=== PATIENT | female | born 1990 | race African-American/Black ===

== ENCOUNTER → 2016-11-29 | Outpatient (CLI) | payer MEDICARE, OTHER ==
[2016-09-10 17:39] VITALS: BP 115/72
[~2016-11-29] MED LIST: PROAIR HFA8.5 GM INH
--- NOTE | 2016-11-30 13:45 | CARD ---
APPROVED REPORT EXAM: Two-dimensional and M-mode echocardiogram with Doppler and color Doppler. Other Information Quality : Average Rhythm : NSR INDICATION Cardiomyopathy Chest Pain 2D DIMENSIONS RVDd2.0 (2.9-3.5cm)Left Atrium(2D)2.3 (1.6-4.0cm) IVSd0.6 (0.7-1.1cm)Aortic Root(2D)2.1 (2.0-3.7cm) LVDd4.1 (3.9-5.9cm)LVOT Diameter1.9 (1.8-2.4cm) PWd0.6 (0.7-1.1cm)LVDs2.8 (2.5-4.0cm) FS (%) 21.7 %SV44.8 ml LVEF(%)40.0 (>50%) Aortic Valve AoV Peak Zev.100.2cm/sAoV VTI19.2cm AO Peak GR.4.0mmHgLVOT Peak Zev.80.9cm/s LVOT VTI 17.76cmAO Mean GR.2mmHg DARREN (VMAX)2.01xp4CFO (VTI)2.50cm2 Mitral Valve MV E Bygiemmm12.5cm/sMV DECEL [id number] MV A Mcbsrzfh03.2cm/sMV FNQ18ae E/A Ratio2.0MV A Lixdskwh72om MVA (PHT)4.36cm2 TDI E/Lateral E'4.5E/Medial E'7.1 Pulmonary Valve PV Peak Fncfsfmk13.8cm/sPV Peak Grad.2mmHg RVOT VTI15.9cm Tricuspid Valve TR P. Mrhtqopt289wm/sRAP YVQNZHSI6wtOy TR Peak Gr.36ydCtFXLG47rhKq Pulmonary Vein S1 Wvouoyyg77.3cm/sD2 Jekusvit58.4cm/s LEFT VENTRICLE The left ventricle is normal size. There is normal left ventricular wall thickness. Left ventricle sy stolic function is low normal. The Ejection Fraction is 40%. Septal motion consistent with post-opera tive state. The left ventricular diastolic function and filling is normal for age. There is no ventri cular septal defect visualized. RIGHT VENTRICLE The right ventricle is normal size. The right ventricular systolic function is normal. ATRIA The left atrium size is normal. The right atrium size is normal. The interatrial septum is intact wit h no evidence for an atrial septal defect or patent foramen ovale as noted on 2-D or Doppler imaging. AORTIC VALVE The aortic valve is normal in structure and function. The aortic valve is trileaflet. Doppler and Col or Flow revealed no significant aortic regurgitation. There is no significant aortic valvular stenosi s. MITRAL VALVE The mitral valve is normal in structure There is no mitral valve stenosis. Doppler and Color Flow rev ealed mild mitral regurgitation. TRICUSPID VALVE The tricuspid valve is normal in structure and function. Doppler and Color Flow revealed mild tricusp id regurgitation. The PA pressure was estimated at 26 mmHg. There is no tricuspid valve stenosis. PULMONIC VALVE The pulmonary valve is normal in structure. Doppler and Color Flow revealed mild to moderate pulmonic valvular regurgitation. There is no pulmonic valvular stenosis. GREAT VESSELS The aortic root is normal in size. The IVC is normal in size and collapses >50% with inspiration. PERICARDIAL EFFUSION There is no evidence of significant pericardial effusion. Critical Notification Critical Value: No <Conclusion> Left ventricle systolic function is low normal. The Ejection Fraction is 40%. The left atrium size is normal. The right atrium size is normal. The aortic valve is normal in structure and function. The aortic valve is trileaflet. Doppler and Color Flow revealed mild mitral regurgitation. Doppler and Color Flow revealed mild tricuspid regurgitation. The PA pressure was estimated at 26 mmHg. Doppler and Color Flow revealed mild to moderate pulmonic valvular regurgitation. There is no evidence of significant pericardial effusion.
== END | disposition home or self-care (01) ==
LOC: ECHO 07:28
PROVIDERS: ATTEND Internal Medicine Cardiovascular Disease
DX: I08.1 Rheumatic disorders of both mitral and tricuspid valves (principal); I42.8 Other cardiomyopathies; R07.89 Other chest pain; Z98.890 Other specified postprocedural states
CPT/HCPCS: 93306

== ENCOUNTER 2017-03-23 17:18 | Emergency (ER) | payer MEDICARE, OTHER ==
[2017-03-23 17:27] VITALS: BP 132/68
--- NOTE | 2017-03-23 18:18 | PHYS DOC ---
Past Medical History Past Medical History: No Pertinent History, Depression Past Surgical History: Tubal ligation, Other Additional Past Surgical Histo: cardiac surgery to repair biopsy complication Alcohol Use: None Drug Use: Marijuana Adult General Chief Complaint Chief Complaint: FOOT INJURY PAIN [facility] HPI Patient is a 27 year old female presents to the emergency department stating that she was working on a step when she twisted her right foot and ankle. She states that she has having tenderness just below the ankle area in the foot portion. She states she is able to ambulate however has increased pain and discomfort. She states that she is taken Tylenol for the pain and discomfort with minimal relief. There does not appear to be any bruising discoloration or any swelling noted. Peripheral pulses 2+ cap refill brisk less than 2 seconds. Review of Systems Review of Systems Constitutional: Denies fever or chills [] Eyes: Denies change in visual acuity, redness, or eye pain [] HENT: Denies nasal congestion or sore throat [] Respiratory: Denies cough or shortness of breath [] Cardiovascular: No additional information not addressed in HPI [] GI: Denies abdominal pain, nausea, vomiting, bloody stools or diarrhea [] : Denies dysuria or hematuria [] Musculoskeletal: Denies back pain. Right foot and ankle pain Integument: Denies rash or skin lesions [] Neurologic: Denies headache, focal weakness or sensory changes [] Endocrine: Denies polyuria or polydipsia [] Allergies Allergies Allergies Coded Allergies Type Severity Reaction Last Updated Verified No Known Drug Allergies 05/14/16 No Physical Exam Physical Exam Constitutional: Well developed, well nourished, no acute distress, non-toxic appearance. [] HENT: Normocephalic, atraumatic, bilateral external ears normal, oropharynx moist, no oral exudates, nose normal. [] Eyes: PERRLA, EOMI, conjunctiva normal, no discharge. [] Neck: Normal range of motion, no tenderness, supple, no stridor. [] Cardiovascular:Heart rate regular rhythm Lungs & Thorax: No respiratory distress noted Skin: Warm, dry, no erythema, no rash. [] Back: No tenderness Extremities: Right foot/ankle tenderness, no cyanosis, no clubbing, ROM intact, no edema. No bruising no discoloration no redness noted peripheral pulses 2+ cap refill brisk less than 2 seconds. Neurologic: Alert and oriented X 3, normal motor function, normal sensory function, no focal deficits noted. [] Psychologic: Affect normal, judgement normal, mood normal. [] Current Patient Data Vital Signs Vital Signs Date Time Temp Pulse Resp B/P (MAP) Pulse Ox O2 Delivery O2 Flow Rate FiO2 03/23/17 17:27 98.3 82 18 98 Room Air 98.3 EKG EKG [] Radiology/Procedures Radiology/Procedures [] Course & Med Decision Making Course & Med Decision Making Pertinent Labs and Imaging studies reviewed. (See chart for details) X-rays were negative per Dr. Quinn. Hung wrap will be placed over the area with recommendations for ice packs on 20 minutes off 20 minutes several times a day. Elevation as much as possible. Recommended ibuprofen 800 mg every 8 hours with food stop taking few develop an upset stomach. Patient agrees with discharge instructions, treatment regimens and follow-up recommendations. She'll be provided with orthopedic name and number to follow up with as needed. Signs and symptoms to return back to emergency department been provided. All questions and concerns been answered at the patient's bedside. Dragon Disclaimer Dragon Disclaimer This electronic medical record was generated, in whole or in part, using a voice recognition dictation system. Departure Departure Impression: Primary Impression: Right foot sprain Disposition: 01 HOME, SELF-CARE Condition: STABLE Referrals: UNKNOWN PCP NAME (PCP) YUNIOR LOPEZ MD Patient Instructions: Foot Sprain-Brief Additional Instructions: Your x-rays were negative for any bony abnormalities. Hung wrap for the next 5-7 days. Ice packs on 20 minutes off 20 minutes several times a day. Elevation as much as possible. Ibuprofen 800 mg every 8 hours with food stop taking few develop an upset stomach. Follow-up with orthopedic as needed. Return back to emergency prior signs symptoms become worse. Problem Qualifiers Primary Impression: Right foot sprain Encounter type: initial encounter Qualified Codes: S93.601A - Unspecified sprain of right foot, initial encounter JEAN-CLAUDE EVANS HEARING THERAPY DIRECTOR Mar 23, 2017 18:18
--- NOTE | 2017-03-24 08:00 | RAD ---
Exam performed :Right ankle 3 views Clinical indication: Twisted ankle today Date of service: 03/23/17 .Comparison:None available Finding: AP, oblique and lateral radiographs of the ankle reveal the osseous structures to be intact and well aligned. The joint spaces are well-preserved. The articular margins are smooth. Evidence of fracture or dislocation is not identified. Mild soft tissue swelling is seen on the right ankle. Impression: Radiographically normal right ankle.
== END 2017-03-23 18:26 | disposition home or self-care (01) ==
LOC: ER 17:18
DX: S93.601A Unspecified sprain of right foot, initial encounter (principal); X50.9XXA Other and unspecified overexertion or strenuous movements or postures, initial encounter; Y93.89 Activity, other specified; Y99.8 Other external cause status; Y92.89 Other specified places as the place of occurrence of the external cause
CPT/HCPCS: 73610; 99284

== ENCOUNTER 2018-04-09 17:47 | Emergency (ER) | payer MEDICARE, OTHER ==
[~2018-04-09] VITALS: Ht 144.8 cm; Wt 54.9 kg
[2018-04-09 18:03] VITALS: BP 146/96
[2018-04-09] MEDS ORDERED: AMOX500C PO (18:34)
--- NOTE | 2018-04-09 18:53 | PHYS DOC ---
Past Medical History Past Medical History: Depression Past Surgical History: Tubal ligation, Other Additional Past Surgical Histo: cardiac surgery to repair biopsy complication Alcohol Use: None Drug Use: Marijuana Adult General Chief Complaint Chief Complaint: SORE THROAT HPI HPI Patient is a 28 year old female who presents with sore throat 2 days she has a sick contact with a sore throat who actually ended up having strep throat. Really no cough subjective fever pain worse on the right she chews nicotine gum yesterday but she doesn't think that is causing Review of Systems Review of Systems Constitutional: : Denies dysuria or hematuria [] Musculoskeletal: Denies back pain or joint pain [] Integument: Denies rash or skin lesions [] Neurologic: Denies headache, focal weakness or sensory changes [] All other systems were reviewed and found to be within normal limits, except as documented in this note. Allergies Allergies Allergies Coded Allergies Type Severity Reaction Last Updated Verified No Known Drug Allergies 05/14/16 No Physical Exam Physical Exam Constitutional: Well developed, well nourished, no acute distress, non-toxic appearance. [] HENT: Normocephalic, atraumatic, bilateral external ears normal, oropharynx moist, scattered exudates shoddy anterior lymphadenopathy Eyes: PERRLA, EOMI, conjunctiva normal, no discharge. [] Neck: Normal range of motion, no tenderness, supple, no stridor. [] Cardiovascular:Heart rate regular rhythm, no murmur [] Lungs & Thorax: Bilateral breath sounds clear to auscultation [] Abdomen: Bowel sounds normal, soft, no tenderness, no masses, no pulsatile masses. [] Skin: Warm, dry, no erythema, no rash. [] Back: No tenderness, no CVA tenderness. [] Extremities: No tenderness, no cyanosis, no clubbing, ROM intact, no edema. [] Neurologic: Alert and oriented X 3, normal motor function, normal sensory function, no focal deficits noted. [] Psychologic: Affect normal, judgement normal, mood normal. [] Current Patient Data Vital Signs Vital Signs Date Time Temp Pulse Resp B/P (MAP) Pulse Ox O2 Delivery O2 Flow Rate FiO2 04/09/18 18:03 98.3 79 18 146/96 (113) 98 Room Air 98.3 EKG EKG [] Radiology/Procedures Radiology/Procedures [] Course & Med Decision Making Course & Med Decision Making Pertinent Labs and Imaging studies reviewed. (See chart for details) []Probable strep throat because of cardiac history of treatment with antibiotics well-appearing no evidence of peritonsillar abscess Shad Disclaimer Dragon Disclaimer This electronic medical record was generated, in whole or in part, using a voice recognition dictation system. Departure Departure Impression: Primary Impression: Pharyngitis Disposition: HOME, SELF-CARE Condition: STABLE Patient Instructions: Sore Throat, Qsqd-lk-Optk Scripts Amoxicillin (AMOXICILLIN) 500 Mg Capsule 1 CAP PO BID, #20 CAP Prov: ALISSON PERES MD 04/09/18 ALISSON PERES MD Apr 09, 2018 18:53
== END 2018-04-09 19:07 | disposition home or self-care (01) ==
LOC: ER 17:47
DX: J02.9 Acute pharyngitis, unspecified (principal)
CPT/HCPCS: 99283

== ENCOUNTER 2018-08-28 11:50 | Emergency (ER) | payer MEDICARE, OTHER ==
[~2018-08-28] VITALS: Ht 144.8 cm; Wt 49.0 kg
[~2018-08-28 11:50] MED LIST changes: +ALBU2.5V8 INH; +AMOX500C PO; -PROAIR HFA8.5 GM INH
[2018-08-28 12:11] VITALS: BP 125/78
[2018-08-28] MEDS ORDERED: KETOROLAC 30 MG/ML VIAL. IM ONE (12:30)
[2018-08-28] MEDS ORDERED: NAPR-695 PO (12:50)
--- NOTE | 2018-08-28 12:50 | PHYS DOC ---
Past Medical History Past Medical History: Depression Past Surgical History: Tubal ligation, Other Additional Past Surgical Histo: cardiac surgery to repair biopsy complication Smoking: Cigarettes Alcohol Use: None Drug Use: Marijuana Adult General Chief Complaint Chief Complaint: KNEE INJURY HPI HPI 28 y/o female presents with report of right knee pain which occurred upon mechanical fall this AM at approximately 0400. Denies head trauma or neck pain. Denies laceration or bruising. Reports she feels that the knee cannot support her. Denies . Reports last menstrual period was 2 weeks ago. Also reports history of tubal ligation. Review of Systems Review of Systems Musculoskeletal: Denies back pain or joint pain [] Integument: Denies rash or skin lesions [] Neurologic: Denies headache, focal weakness or sensory changes [] Complete systems were reviewed and found to be within normal limits, except as documented in this note. Current Medications Current Medications Current Medications Medications (Trade) Dose Ordered Sig/Carroll Start Time Stop Time Status Last Admin Dose Admin Ketorolac Tromethamine (Toradol 30mg Vial) 30 mg 1X ONCE 08/28/18 12:30 08/28/18 12:31 DC 08/28/18 12:30 30 MG Allergies Allergies Allergies Coded Allergies Type Severity Reaction Last Updated Verified No Known Drug Allergies 05/14/16 No Physical Exam Physical Exam Constitutional: Well developed, well nourished, no acute distress, non-toxic appearance. [] HENT: Normocephalic, atraumatic, oropharynx moist Eyes: Conjunctiva normal, no discharge. [] Neck: Normal range of motion, no midline tenderness, supple Cardiovascular: Heart rate regular rhythm, CR < 2 sec Lungs & Thorax: Bilateral breath sounds clear to auscultation [] Abdomen: Soft, no tenderness; pelvis stable and nontender Skin: Warm, dry, no erythema, no abrasion or laceration noted Extremities: Right knee tenderness on palpation of tibial plateau, joint appears stable, distal pulses intact, CR < 2 sec, sensation/motor intact, Neurological: Alert and oriented, no focal deficit Psychologic: Affect normal, judgement normal, mood normal. [] Current Patient Data Vital Signs Vital Signs Date Time Temp Pulse Resp B/P (MAP) Pulse Ox O2 Delivery O2 Flow Rate FiO2 08/28/18 12:11 98.3 109 16 125/78 (94) 98 Room Air 98.3 EKG EKG [] Radiology/Procedures Radiology/Procedures PROCEDURE: KNEE RIGHT 3V EXAM: Right knee, 3 views. HISTORY: Pain. COMPARISON: None. FINDINGS: 3 views of the right knee are obtained. There is no fracture, dislocation or subluxation. No joint effusion is seen. IMPRESSION: No acute osseous finding. Electronically signed by: Lisa Sargent MD (08/28/2018 12:43 PM) [facility] Course & Med Decision Making Course & Med Decision Making Pertinent Imaging studies reviewed. (See chart for details) Patients presents with right knee pain s/p fall this AM. Joint appears stable. XR without acute process. Pain addressed. Patient reports unable to move or bear weight. Cannot exclude meniscus injury. Knee immobilizer placed. Crutches with education/training provided. Patient stable for discharge home with outpatient follow-up with PCP/ Orthopedics. Orthopedic referral provided. Discussed findings and plan with patient, who acknowledges understanding and agreement. Dragon Disclaimer Dragon Disclaimer This electronic medical record was generated, in whole or in part, using a voice recognition dictation system. Splinting Splinting : Location: R knee Pre-Made Type: knee immobilizer Pre-Proc Neuro Vasc Exam: normal Post-Proc Neuro Vasc Exam: normal, unchanged from pre-exam Departure Departure Impression: Primary Impression: Knee pain, right Disposition: 01 HOME, SELF-CARE Condition: STABLE Referrals: UNKNOWN PCP NAME (PCP) YUNIRO LOPEZ MD Patient Instructions: Crutch Use, Hwst-hu-Rubi, Knee Immobilizer, [id number]-bf-Lwvw , Knee Pain, Mnlb-mz-Azmk Scripts Ibuprofen (MOTRIN IB) 200 Mg Tablet 400 MG PO TID PRN PRN for PAIN, #30 TAB Prov: YOANDY SHETH DO 08/28/18 Problem Qualifiers Primary Impression: Knee pain, right Chronicity: acute Qualified Codes: M25.561 - Pain in right knee YOANDY SHETH DO Aug 28, 2018 12:50
[2018-08-28] MEDS ORDERED: IBUP200T44 PO (13:02)
== END 2018-08-28 13:20 | disposition home or self-care (01) ==
LOC: ER 11:50
DX: M25.561 Pain in right knee (principal); F32.9 Major depressive disorder, single episode, unspecified; Z98.51 Tubal ligation status
CPT/HCPCS: 29505; 73562; 96372; 99283; J1885

== ENCOUNTER 2021-08-24 09:42 | Emergency (ER) | payer OTHER ==
[~2021-08-24] VITALS: Ht 144.8 cm; Wt 45.5 kg
[~2021-08-24 09:42] MED LIST changes: +IBUP200T44 PO; +NAPR-695 PO
[2021-08-24 10:01] VITALS: BP 139/89
[2021-08-24] MEDS ORDERED: IV RINGERS,LACTATED 1000ML 1,000 ML IV ONE (10:45)
[2021-08-24] MEDS ORDERED: ONDANSETRON PF 4 MG/2 ML VIAL. IVP ONE (10:45)
[2021-08-24 10:57] LABS: BILIRUBIN,URINE NEGATIVE (NEG); CLARITY,URINE CLOUDY; COLOR,URINE YELLOW; NITRITE,URINE NEGATIVE (NEG); PH,URINE 6.5 (<5.0-8.0); PROTEIN,URINE 100 mg/dL (NEG-TRACE)
[2021-08-24 11:00] LABS: BASO % 1 % (0-3); EOS % 0 % (0-3); HEMATOCRIT 42.2 % (36.0-47.0); HEMOGLOBIN 14.3 g/dL (12.0-15.5); LYMPH # 1.4 x10^3/uL (1.0-4.8); LYMPH % 18 % (24-48); MEAN CORPUSCULAR HEMOGLOBIN 33 pg (25-35); MEAN CORPUSCULAR HGB CONC 34 g/dL (31-37); MEAN CORPUSCULAR VOLUME 97 fL (79-100); MONO # 0.5 x10^3/uL (0.0-1.1); MONO % 7 % (0-9); NEUT # 5.6 x10^3/uL (1.8-7.7); NEUT % 74 % (31-73); PLATELET COUNT 361 x10^3/uL (140-400); RED BLOOD COUNT 4.35 x10^6/uL (3.50-5.40); RED CELL DISTRIBUTION WIDTH 13.1 % (11.5-14.5); WHITE BLOOD COUNT 7.5 x10^3/uL (4.0-11.0)
[2021-08-24] MEDS ORDERED: KETOROLAC 30 MG/ML VIAL. IVP ONE (11:00)
[2021-08-24 11:05] LABS: CALCIUM 8.9 mg/dL (8.5-10.1); CREATININE 0.8 mg/dL (0.6-1.0); GFR 101.9; POTASSIUM 3.5 mmol/L (3.5-5.1)
[2021-08-24 11:06] LABS: BACTERIA,URINE MANY /HPF (0-FEW); WBC,URINE TNTC /HPF (0-4)
[2021-08-24 11:07] LABS: RBC,URINE FIELD OBSCURED /HPF (0-2)
--- NOTE | 2021-08-24 11:08 | PHYS DOC ---
Past Medical History Past Medical History: Depression Additional Past Medical Histor: HEART PROBLEMS (BG WEI) Past Surgical History: Tubal ligation, Other Additional Past Surgical Histo: cardiac surgery to repair biopsy complication (BG WEI) Smoking Status: Current Every Day Smoker Alcohol Use: None Drug Use: Marijuana (BG WEI) General Adult EDM: Chief Complaint: ABDOMINAL PAIN HPI: HPI: Patient is a 31 year old female who presents with 4 days of upper abdominal/back pain and 2 days of emesis. Patient states her pain started in her back on the left side more than the right and now extends to her upper abdomen as well. Her pain is worse when she lays in certain positions and tends to worsen at night. Patient denies any remitting factors. She reports she began vomiting yesterday, and was unable to keep fluids down. Today, she states she has had some soda that she did not vomit back up. She reports associated chills, but denies objective fever. Patient states she has "heart problems" and that she often feels a "flutter in her chest." She denies that this is bothering her today. Patient denies hematuria, dysuria and any other complaints at this time. (BG WEI) Review of Systems: Review of Systems: Constitutional: See HPI Eyes: Denies change in visual acuity, visual field deficits or discharge HENT: Denies ear pain, nasal congestion or sore throat Respiratory: Denies cough or shortness of breath Cardiovascular: See HPI GI: See HPI : See HPI Musculoskeletal: Denies back pain or joint pain Integument: Denies rash or other skin lesion Neurologic: Denies headache, focal weakness or sensory changes (BG WEI) Heart Score: C/O Chest Pain: No (BG WEI) Current Medications: Current Medications Medications (Trade) Dose Ordered Sig/Carroll Start Time Stop Time Status Last Admin Dose Admin Ketorolac Tromethamine (Toradol 30mg Vial) 15 mg 1X ONCE 08/24/21 11:00 08/24/21 11:01 Ondansetron HCl (Zofran) 4 mg 1X ONCE 08/24/21 10:45 08/24/21 10:49 DC Ringer's Solution 1,000 ml @ 1,000 mls/hr 1X ONCE 08/24/21 10:45 08/24/21 11:44 (BG WEI) Allergies: Allergies: Allergies Coded Allergies Type Severity Reaction Last Updated Verified No Known Drug Allergies 05/14/16 No (BG WEI) Physical Exam: PE: Constitutional: Well developed, well nourished, no acute distress, non-toxic appearance. HENT: Normocephalic, atraumatic, bilateral external ears normal, nose normal. Eyes: EOMI, conjunctiva normal, no discharge. Neck: Normal range of motion, no stridor. Abdomen: Bowel sounds normal, soft, no tenderness, no masses, no pulsatile masses, negative McBurney's point tenderness, negative Rovsing sign, negative Jones's sign. Skin: Warm, dry, no erythema, no rash. Back: No step-off, no tenderness, bilateral CVA tenderness. Extremities: No tenderness, no cyanosis, no clubbing, ROM intact, no edema. Neurologic: Alert and oriented x4, steady and symmetrical upright gait, no focal deficits noted. (BG WEI) Current Patient Data: Labs: Laboratory Tests Test 08/24/21 09:55 08/24/21 09:59 08/24/21 10:10 Urine Collection Type Void Urine Color Yellow Urine Clarity Cloudy Urine pH 6.5 (<5.0-8.0) Urine Specific [place] 1.010 (1.000-1.030) Urine Protein 100 mg/dL (NEG-TRACE) Urine Glucose (UA) Negative mg/dL (NEG) Urine Ketones (Stick) Negative mg/dL (NEG) Urine Blood Moderate (NEG) Urine Nitrite Negative (NEG) Urine Bilirubin Negative (NEG) Urine Urobilinogen Dipstick 1.0 mg/dL (0.2 mg/dL) Urine Leukocyte Esterase Large (NEG) Urine RBC Field obscured /HPF (0-2) Urine WBC Tntc /HPF (0-4) Urine Squamous Epithelial Cells Mod /LPF Urine Bacteria Many /HPF (0-FEW) Urine Mucus Slight /LPF Bedside Urine HCG, Qualitative Hcg negative (Negative) White Blood Count 7.5 x10^3/uL (4.0-11.0) Red Blood Count 4.35 x10^6/uL (3.50-5.40) Hemoglobin 14.3 g/dL (12.0-15.5) Hematocrit 42.2 % (36.0-47.0) Mean Corpuscular Volume 97 fL (79-100) Mean Corpuscular Hemoglobin 33 pg (25-35) Mean Corpuscular Hemoglobin Concent 34 g/dL (31-37) Red Cell Distribution Width 13.1 % (11.5-14.5) Platelet Count 361 x10^3/uL (140-400) Neutrophils (%) (Auto) 74 % (31-73) Lymphocytes (%) (Auto) 18 % (24-48) Monocytes (%) (Auto) 7 % (0-9) Eosinophils (%) (Auto) 0 % (0-3) Basophils (%) (Auto) 1 % (0-3) Neutrophils # (Auto) 5.6 x10^3/uL (1.8-7.7) Lymphocytes # (Auto) 1.4 x10^3/uL (1.0-4.8) Monocytes # (Auto) 0.5 x10^3/uL (0.0-1.1) Eosinophils # (Auto) 0.0 x10^3/uL (0.0-0.7) Basophils # (Auto) 0.0 x10^3/uL (0.0-0.2) Sodium Level 138 mmol/L (136-145) Potassium Level 3.5 mmol/L (3.5-5.1) Chloride Level 100 mmol/L (98-107) Carbon Dioxide Level 25 mmol/L (21-32) Anion Gap 13 (6-14) Blood Urea Nitrogen 5 mg/dL (7-20) Creatinine 0.8 mg/dL (0.6-1.0) Estimated GFR (Cockcroft-Gault) 101.9 BUN/Creatinine Ratio 6 (6-20) Glucose Level 119 mg/dL (70-99) Calcium Level 8.9 mg/dL (8.5-10.1) Magnesium Level 2.3 mg/dL (1.8-2.4) Total Bilirubin 0.6 mg/dL (0.2-1.0) Aspartate Amino Transf (AST/SGOT) 18 U/L (15-37) Alanine Aminotransferase (ALT/SGPT) 22 U/L (14-59) Alkaline Phosphatase 99 U/L (46-116) Total Protein 8.9 g/dL (6.4-8.2) Albumin 3.9 g/dL (3.4-5.0) Albumin/Globulin Ratio 0.8 (1.0-1.7) Lipase 35 U/L (73-393) Vital Signs: Vital Signs Date Time Temp Pulse Resp B/P (MAP) Pulse Ox O2 Delivery O2 Flow Rate FiO2 08/24/21 10:01 97.7 89 18 139/89 (106) 100 Room Air 97.7 (BG WEI) Radiology/Procedures: Radiology/Procedures: PROCEDURE: CT ABD PELV W/ IV CONTRST ONLY EXAM: Abdomen and pelvis CT with intravenous contrast. HISTORY: Pain. TECHNIQUE: Computed tomographic images of the abdomen and pelvis were obtained following the administration of intravenous contrast. Multiplanar reformatting was performed. *One or more of the following individualized dose reduction techniques were utilized for this examination: 1. Automated exposure control. 2. Adjustment of the mA and/or kV according to patient size. 3. Use of iterative reconstruction technique. COMPARISON: None. FINDINGS: Evaluation of the upper thorax demonstrates no infiltrate or pleural effusion. There is callus formation surrounding a healing posterior lateral left seventh and eighth rib fractures. The heart is normal in size. There is minimal fatty infiltration of the liver along the falciform ligament. No suspicious hepatic lesion is seen. The gallbladder, pancreas, spleen and adrenal glands are unremarkable. There is left greater than right renal pelviectasis and urothelial thickening. There is mild bladder wall thickening and surrounding fatty stranding. There is no appendicitis. There is no bowel obstruction. The uterus is unremarkable. There is a small amount of pelvic free fluid, within this nodule limits for a premenopausal female. There is a 1.4 cm peripherally enhancing right ovarian cyst, likely an involuting cyst. The aorta is normal in caliber. There are prominent retroperitoneal lymph nodes, likely reactive in etiology. There is no acute or suspicious osseous finding. IMPRESSION: 1. Bilateral urothelial thickening and slight bladder wall thickening with surrounding stranding likely due to cystitis and ascending urinary tract infection. There is superimposed left greater than right pelviectasis. Correlate with urinalysis. 2. 1.4 cm suspected involuting right ovarian cyst and small amount of pelvic fr ee fluid. 3. Healing left seventh and eighth rib fractures. Electronically signed by: Lisa Sargent MD (08/24/2021 11:42 AM) [id number] (BG WEI) Course & Med Decision Making: Course & Med Decision Making Pertinent Labs and Imaging studies reviewed. (See chart for details) Patient is a 31-year-old female who presents with 4-day history of bilateral upper back and upper abdominal pain with 2-day history of vomiting. Work-up today will include labs, urinalysis, CT abdomen pelvis. Patient provided with IV fluids and pain medication. Work-up today reveals ascending urinary tract infection. Patient will receive p.o. antibiotic therapy. Patient provided with return precautions. She understands and is agreeable to discharge plan. (BG WEI) Dragon Disclaimer: Dragon Disclaimer: This electronic medical record was generated, in whole or in part, using a voice recognition dictation system. (GB WEI) Departure Departure Impression: Primary Impression: Urinary tract infection Qualified Codes: N39.0 - Urinary tract infection, site not specified; R31.9 - Hematuria, unspecified Disposition: 01 HOME / SELF CARE / HOMELESS Condition: STABLE Referrals: NO PCP (PCP) KHRIS AMBRIZ MD Patient Instructions: Urinary Tract Infection, [id number] Additional Instructions: EMERGENCY DEPARTMENT GENERAL DISCHARGE INSTRUCTIONS Thank you for coming to [facility] Emergency Department (ED) today and trusting us with you care. We trust that you had a positive experience in our Emergency Department. If you wish to speak to the department management, you may call the director at . YOUR FOLLOW UP INSTRUCTIONS ARE FOLLOWS: 1. Follow up with your primary care doctor. If you do not have a primary doctor, please ask for a resource list of physicians or clinics that may be able to assist you with follow up care. 2. The emergency provider has interpreted your imaging studies, if any were ordered. The radiology alternative financing specialist also reviewed them. If there is a change in the findings, you will be notified in 48 hours when at all possible. 3. If a lab test or culture has been done, your results will be reviewed and you will be notified if you need a change in treatment. 4. Follow instructions verbalized to you and refer to the printouts if needed. ADDITIONAL INSTRUCTIONS AND INFORMATION: 1. Your care today has been supervised by a physician who is specially trained in emergency care. Many problems require more than one evaluation for a complete diagnosis and treatment. We recommend that you schedule your follow up appointment as recommended to ensure complete treatment of you illness or injury. If you are unable to obtain follow up care and continue to have a problem, or if your condition worsens, we recommend that you return to the ED. 2. We are not able to safely determine your condition over the phone nor are we able to give sound medical advice over the phone. For these safety reasons, if you call for medical advice we will ask you to come to the ED for further evaluation. 3. If you have any questions regarding these discharge instructions please call the ED at . SAFETY INFORMATION: In the interest of safety, wellness, and injury prevention; we encourage you to wear your seat belt, if you smoke; quite smoking, and we encourage family to use a protective helmet for bicycling and other sporting events that present an increased risk for head injury. IF YOUR SYMPTOMS WORSEN OR NEW SYMPTOMS DEVELOP, OR YOU HAVE CONCERNS ABOUT YOUR CONDITION; OR IF YOUR CONDITION WORSENS WHILE YOU ARE WAITING FOR YOUR FOLLOW UP APPOINTMENT; EITHER CONTACT YOUR PRIMARY CARE DOCTOR, THE PHYSICIAN WHOSE NAME AND NUMBER YOU WERE GIVEN, OR RETURN TO THE ED IMMEDIATELY. Scripts Cefuroxime Axetil (CEFUROXIME) 500 Mg Tablet 1 TAB PO BID for 7 Days, #14 TAB 0 Refills Prov: BG WEI 08/24/21 Attending Signature Attending Signature I have reviewed the PA/CADMIUM BURNER's note and plan of care. I was available for consultation as needed during the patient's visit in the emergency department. I agree with the clinical impression, plan, and disposition. (YOANDY SHETH DO) BG WEI Aug 24, 2021 11:08 YOANDY SHETH DO Aug 25, 2021 11:07
[2021-08-24 11:11] LABS: ALBUMIN 3.9 g/dL (3.4-5.0); ALBUMIN/GLOBULIN RATIO 0.8 (1.0-1.7); MAGNESIUM 2.3 mg/dL (1.8-2.4); TOTAL BILIRUBIN 0.6 mg/dL (0.2-1.0); TOTAL PROTEIN 8.9 g/dL (6.4-8.2)
[2021-08-24] MEDS ORDERED: CONTRAST GIVEN. MC PRN (11:15)
[2021-08-24] MEDS ORDERED: IOHEXOL 300 MG/ML 100ML VIAL. IV ONE (11:15)
--- NOTE | 2021-08-24 11:45 | RAD ---
EXAM: Abdomen and pelvis CT with intravenous contrast. HISTORY: Pain. TECHNIQUE: Computed tomographic images of the abdomen and pelvis were obtained following the administ ration of intravenous contrast. Multiplanar reformatting was performed. *One or more of the following individualized dose reduction techniques were utilized for this examina tion: 1. Automated exposure control. 2. Adjustment of the mA and/or kV according to patient size. 3. Use of iterative reconstruction technique. COMPARISON: None. FINDINGS: Evaluation of the upper thorax demonstrates no infiltrate or pleural effusion. There is katrina bertin formation surrounding a healing posterior lateral left seventh and eighth rib fractures. The hear t is normal in size. There is minimal fatty infiltration of the liver along the falciform ligament. No suspicious hepatic lesion is seen. The gallbladder, pancreas, spleen and adrenal glands are unremarkable. There is left greater than right renal pelviectasis and urothelial thickening. There is mild bladder wall thickening and surrounding fatty stranding. There is no appendicitis. There is no bowel obstruction. The uterus is unremarkable. There is a small amount of pelvic free fluid, within this nodule limits for a premenopausal female. There is a 1.4 cm peripherally enhancing right ovarian cyst, likely an involuting cyst. The aorta is normal in caliber. There are prominent retroperitoneal lymph nodes, likely reactive in e tiology. There is no acute or suspicious osseous finding. IMPRESSION: 1. Bilateral urothelial thickening and slight bladder wall thickening with surrounding stranding like ly due to cystitis and ascending urinary tract infection. There is superimposed left greater than rig ht pelviectasis. Correlate with urinalysis. 2. 1.4 cm suspected involuting right ovarian cyst and small amount of pelvic free fluid. 3. Healing left seventh and eighth rib fractures. Electronically signed by: Lisa Sargent MD (08/24/2021 11:42 AM) [id number]
[2021-08-24] MEDS ORDERED: CEFU500T46 PO (12:06)
== END 2021-08-24 12:16 | disposition home or self-care (01) ==
LOC: ER 09:42
DX: N39.0 Urinary tract infection, site not specified (principal); R31.9 Hematuria, unspecified; R11.2 Nausea with vomiting, unspecified
CPT/HCPCS: 36415; 74177; 80053; 81001; 81025; 83690; 83735; 85025; 87077; 87086; 87186; 96361; 96374; 96375; 99285; J1885; J2405; J7120; Q9967

== ENCOUNTER 2021-12-03 15:20 | Emergency (ER) | payer MEDICARE, OTHER ==
[~2021-12-03] VITALS: Ht 157.5 cm; Wt 48.5 kg
[~2021-12-03 15:20] MED LIST changes: +CEFU500T46 PO; +CLON-77 PO; +FLUO10CA17 PO; +OXYC1TAB15 PO
[2021-12-03] MEDS ORDERED: HYDROcodone/APAP 5/325MG 1 TAB TABLET PO ONE (18:30)
[2021-12-03 19:24] LABS: BASO # 0.1 x10^3/uL (0.0-0.2); BASO % 1 % (0-3); EOS # 0.1 x10^3/uL (0.0-0.7); EOS % 1 % (0-3); HEMATOCRIT 31.4 % (36.0-47.0); HEMOGLOBIN 11.1 g/dL (12.0-15.5); LYMPH # 2.9 x10^3/uL (1.0-4.8); LYMPH % 35 % (24-48); MEAN CORPUSCULAR HEMOGLOBIN 35 pg (25-35); MEAN CORPUSCULAR HGB CONC 35 g/dL (31-37); MEAN CORPUSCULAR VOLUME 99 fL (79-100); MONO # 0.5 x10^3/uL (0.0-1.1); MONO % 6 % (0-9); NEUT # 4.8 x10^3/uL (1.8-7.7); NEUT % 57 % (31-73); PLATELET COUNT 596 x10^3/uL (140-400); RED BLOOD COUNT 3.19 x10^6/uL (3.50-5.40); RED CELL DISTRIBUTION WIDTH 14.2 % (11.5-14.5); WHITE BLOOD COUNT 8.4 x10^3/uL (4.0-11.0)
[2021-12-03 19:43] LABS: CALCIUM 8.6 mg/dL (8.5-10.1); CREATININE 0.8 mg/dL (0.6-1.0); GFR 101.9
[2021-12-03 19:49] LABS: ALBUMIN 2.9 g/dL (3.4-5.0); ALBUMIN/GLOBULIN RATIO 0.7 (1.0-1.7); TOTAL BILIRUBIN 0.3 mg/dL (0.2-1.0); TOTAL PROTEIN 7.1 g/dL (6.4-8.2)
[2021-12-03 19:50] VITALS: BP 131/81
[2021-12-03] MEDS ORDERED: CLON-77 PO (22:43)
[2021-12-03] MEDS ORDERED: OXYC-314 PO (22:43)
--- NOTE | 2021-12-03 22:44 | PHYS DOC ---
Past Medical History Past Medical History: CAD, Depression Additional Past Medical Histor: TUBAL LIGATION Past Surgical History: Tubal ligation Additional Past Surgical Histo: HEART SURGERY Smoking Status: Current Every Day Smoker Alcohol Use: None Drug Use: Marijuana General Adult EDM: Chief Complaint: UPPER EXTREMITY SWELLING HPI: HPI: Patient is a 31 year old female with history of heart surgery from complications who presents to the ED today complaining of swelling to the right upper extremity and bilateral lower extremities for two days. Patient states on Friday/3 days ago she had surgery to the right elbow. She states she has noted increased swelling to bilateral lower extremities and the right upper extremity. She states due to her heart surgery she talked to her orthopedic doctor and they requested she comes to the ED today for cardiac work-up as well as venous Dopplers to lower extremities and right upper extremity to r/o blood clot. Patient denies any chest pain, shortness of breath. Review of Systems: Review of Systems: Constitutional: Denies fever or chills. [] Eyes: Denies change in visual acuity. [] HENT: Denies nasal congestion or sore throat. [] Respiratory: Denies cough or shortness of breath. [] Cardiovascular: Denies chest pain or edema. [] GI: Denies abdominal pain, nausea, vomiting, bloody stools or diarrhea. [] : Denies dysuria. [] Musculoskeletal: Reports right upper extremity swelling, bilateral lower extremity swelling Integument: Denies rash. [] Neurologic: Denies headache, focal weakness or sensory changes. [] Psychiatric: Denies depression or anxiety. [] Heart Score: C/O Chest Pain: N/A Risk Factors: Risk Factors: DM, Current or recent (<one month) smoker, HTN, HLP, family history of CAD, obesity. Risk Scores: Score 0 - 3: 2.5% MACE over next 6 weeks - Discharge Home Score 4 - 6: 20.3% MACE over next 6 weeks - Admit for Clinical Observation Score 7 - 10: 72.7% MACE over next 6 weeks - Early Invasive Strategies Current Medications: Current Medications Medications (Trade) Dose Ordered Sig/Carroll Start Time Stop Time Status Last Admin Dose Admin Acetaminophen/ Hydrocodone Bitart (Lortab 5/325) 2 tab 1X ONCE 12/03/21 18:30 12/03/21 18:31 DC 12/03/21 19:57 2 TAB Allergies: Allergies: Allergies Coded Allergies Type Severity Reaction Last Updated Verified No Known Drug Allergies 11/23/21 No Physical Exam: PE: Constitutional: Well developed, well nourished, no acute distress, non-toxic appearance. [] HENT: Normocephalic, atraumatic, bilateral external ears normal, oropharynx moist, no oral exudates, nose normal. [] Eyes: PERRLA, EOMI, conjunctiva normal, no discharge. [] Neck: Normal range of motion, no tenderness, supple, no stridor. [] Cardiovascular:Heart rate regular rhythm, no murmur [] Lungs & Thorax: Bilateral breath sounds clear to auscultation [] Abdomen: Bowel sounds normal, soft, no tenderness, no masses, no pulsatile masses. [] Skin: Warm, dry, no erythema, no rash. [] Back: No tenderness, no CVA tenderness. [] Extremities: Right upper extremity is in a sling with dressing on the right upper extremity. There is moderate swelling to the right hand and fingers. Range of motion to the right upper extremity is intact. Adequate radial, medial, ulnar sensation to the right fingers. +2 right radial pulse. Cap refill less than 2 seconds to right fingers. Bilateral lower extremities with +1 edema. Range of motion is intact. Negative Homans' sign bilaterally to the lower extremities. Cap refill less than 2 seconds of bilateral lower extremities. Neurologic: Alert and oriented X 3, normal motor function, normal sensory function, no focal deficits noted. [] Psychologic: Affect normal, judgement normal, mood normal. [] Current Patient Data: Labs: Laboratory Tests Test 12/03/21 17:44 12/03/21 18:58 POC Urine HCG, Qualitative Hcg negative (Negative) White Blood Count 8.4 x10^3/uL (4.0-11.0) Red Blood Count 3.19 x10^6/uL (3.50-5.40) L Hemoglobin 11.1 g/dL (12.0-15.5) L Hematocrit 31.4 % (36.0-47.0) L Mean Corpuscular Volume 99 fL (79-100) Mean Corpuscular Hemoglobin 35 pg (25-35) Mean Corpuscular Hemoglobin Concent 35 g/dL (31-37) Red Cell Distribution Width 14.2 % (11.5-14.5) Platelet Count 596 x10^3/uL (140-400) H Neutrophils (%) (Auto) 57 % (31-73) Lymphocytes (%) (Auto) 35 % (24-48) Monocytes (%) (Auto) 6 % (0-9) Eosinophils (%) (Auto) 1 % (0-3) Basophils (%) (Auto) 1 % (0-3) Neutrophils # (Auto) 4.8 x10^3/uL (1.8-7.7) Lymphocytes # (Auto) 2.9 x10^3/uL (1.0-4.8) Monocytes # (Auto) 0.5 x10^3/uL (0.0-1.1) Eosinophils # (Auto) 0.1 x10^3/uL (0.0-0.7) Basophils # (Auto) 0.1 x10^3/uL (0.0-0.2) Sodium Level 140 mmol/L (136-145) Potassium Level 4.0 mmol/L (3.5-5.1) Chloride Level 103 mmol/L (98-107) Carbon Dioxide Level 27 mmol/L (21-32) Anion Gap 10 (6-14) Blood Urea Nitrogen 12 mg/dL (7-20) Creatinine 0.8 mg/dL (0.6-1.0) Estimated GFR (Cockcroft-Gault) 101.9 BUN/Creatinine Ratio 15 (6-20) Glucose Level 87 mg/dL (70-99) Calcium Level 8.6 mg/dL (8.5-10.1) Total Bilirubin 0.3 mg/dL (0.2-1.0) Aspartate Amino Transferase (AST) 48 U/L (15-37) H Alanine Aminotransferase (ALT) 53 U/L (14-59) Alkaline Phosphatase 134 U/L (46-116) H Troponin I High Sensitivity < 4 ng/L (4-50) L AY-Acj-F-Type Natriuretic Peptide 550 pg/mL (0-124) H Total Protein 7.1 g/dL (6.4-8.2) Albumin 2.9 g/dL (3.4-5.0) L Albumin/Globulin Ratio 0.7 (1.0-1.7) L Laboratory Tests 12/03/21 18:58 Laboratory Tests 12/03/21 18:58 Vital Signs: Vital Signs Date Time Temp Pulse Resp B/P (MAP) Pulse Ox O2 Delivery O2 Flow Rate FiO2 12/03/21 19:57 18 99 Room Air 12/03/21 19:50 89 131/81 (98) 12/03/21 17:05 98.5 98.5 EKG: EKG: [] Radiology/Procedures: Radiology/Procedures: [] Course & Med Decision Making: Course & Med Decision Making Pertinent Labs and Imaging studies reviewed. (See chart for details) This is a 31-year-old female patient presenting to the ED today with right upper extremity swelling and bilateral lower extremity swelling for the last 2 days. Patient had right elbow surgery 3 days ago I spoke to patient's nurse Ammy and she requested we do venous Dopplers to bilateral lower extremities on the right upper extremity as well as do a cardiac work-up. Patient's cardiac work-up is negative. Venous Dopplers of bilateral lower extremities are negative, right upper extremity venous Doppler is negative too. Dressing was changed to the right upper extremity. Discharge to home. She states she already has an appointment with the orthopedic doctor. Shad Disclaimer: Shad Disclaimer: This electronic medical record was generated, in whole or in part, using a voice recognition dictation system. Departure Departure Impression: Primary Impression: Swelling of right upper extremity Additional Impression: Bilateral lower extremity edema Disposition: HOME / SELF CARE / HOMELESS Condition: STABLE Referrals: NO PCP (PCP) MEHREEN BAKER MD follow up as scheduled Patient Instructions: Edema, [id number] Additional Instructions: You were evaluated in the emergency room, your cardiac work-up is negative. Please elevate bilateral upper and lower extremities, consider wearing compression stockings. Scripts Clonazepam (CLONAZEPAM ) 0.5 Mg Tablet 0.5 MG PO BID PRN for ANXIETY / AGITATION, #20 TAB Prov: WALI GIFFORD CAREER COACH 12/03/21 Oxycodone Hcl/Acetaminophen (ENDOCET 5-325 TABLET) 1 Each Tablet 1 TAB PO PRN TID PRN for PAIN MDD 3 Tablet(s), #20 TAB 0 Refills Prov: WALI GIFFORD CAREER COACH 12/03/21 WALI GIFFORD CAREER COACH December 03, 2021 22:44
--- NOTE | 2021-12-04 12:22 | RAD ---
EXAMINATION: XR CHEST 1V CLINICAL HISTORY: Chest pain, bilateral lower extremity edema. EXAM DATE/TIME: 12/03/2021 7:07 PM COMPARISON: None FINDINGS: Lines, Tubes, and Devices: None. Cardiomediastinal Silhouette: Within normal limits. Lungs and Pleura: No evidence of focal airspace consolidation or pleural effusion. Pulmonary vasculat ure unremarkable. Bones and Soft Tissues: Healing left rib fracture deformities. Median sternotomy wires. IMPRESSION: No evidence of acute cardiopulmonary abnormality. Electronically signed by: Alxex Hudson DO (12/03/2021 8:38 PM) CAROLINE
--- NOTE | 2021-12-04 12:22 | EKG ---
[facility] [address] [place] [address] Test Date: 2021-12-03 Test Time: 19:49:48 Pat Name: MARVIN BEGUM Department: Room: Gender: F Medicinal Chemist: [ : 1990 Requested By: WALI GIFFORD Order Number: [id number] Reading MD: Eladio Carrillo Measurements Intervals [place] Rate: 70 P: 48 GA: 114 QRS: 44 QRSD: 74 T: 34 QT: 376 QTc: 409 Interpretive Statements SINUS RHYTHM NORMAL ECG RI6.02 Compared to ECG 05/14/2016 17:58:09 No significant changes Electronically Signed On 12-05-2021 17:14:29 CDT by Eladio Carrillo
--- NOTE | 2021-12-04 12:22 | RAD ---
Examination: Bilateral venous Doppler Indication: Leg swelling Technique: Ultrasound evaluation of the bilateral lower extremities was performed from the groin to t he upper calf with díaz scale, spectral and color doppler evaluation. Comparison: None Findings: There is normal venous flow and compressibility of bilateral common femoral veins, femoral veins, popliteal veins, and visualized proximal calf veins. Impression: No evidence for deep vein thrombosis of bilateral lower extremities from the level of the calf veins to the groins. Electronically signed by: Zack Smith MD (12/03/2021 8:59 PM) ANDREE
--- NOTE | 2021-12-04 12:23 | RAD ---
EXAMINATION: US DPLX VENOUS EXTREMITY UPPER RT (UPPER EXTREMITY VENOUS ULTRASOUND) CLINICAL HISTORY: Right upper extremity edema. TECHNIQUE: Sonographic grayscale images obtained of the right upper extremity deep venous system with color flow Doppler, compression, and augmentation techniques as indicated. Images obtained and stor ed in a permanent archive. COMPARISON: None FINDINGS: No evidence of absent flow or incompressibility within the internal jugular, subclavian, axillary, an d brachial veins. Visualized radial and ulnar veins appear patent on limited evaluation. No evidence of absent flow or incompressibility within the superficial basilic and cephalic veins. Subcutaneous edema. IMPRESSION: No evidence of right upper extremity DVT. Electronically signed by: Alexx Hudson DO (12/03/2021 9:02 PM) CAROLINE
== END 2021-12-03 22:55 | disposition home or self-care (01) ==
LOC: ER 15:20
DX: R60.0 Localized edema (principal); F32.9 Major depressive disorder, single episode, unspecified; I25.10 Atherosclerotic heart disease of native coronary artery without angina pectoris; F17.200 Nicotine dependence, unspecified, uncomplicated
CPT/HCPCS: 36415; 71045; 80053; 81025; 83880; 84484; 85025; 93005; 93970; 93971; 99285